=== PATIENT | male | born 1960 | race Caucasian/White ===

== ENCOUNTER 2020-09-17 07:19 | Day surgery (SDC) | payer BC ==
[~2020-09-17] VITALS: Ht 177.8 cm; Wt 82.0 kg
[2020-09-17] MEDS ORDERED: CHLORHEXIDINE 15 ML UDC ONE (08:09)
[2020-09-17 08:24] VITALS: BP 144/85
[2020-09-17] MEDS ORDERED: PLEASE ENTER ALLERGIES MC SCH (08:30)
[2020-09-17] MEDS ORDERED: LACTATED RINGERS 1,000 ML IV SCH (08:30)
[2020-09-17] MEDS ORDERED: CHLORHEXIDINE 15 ML UDC PO ONE (08:30)
[2020-09-17] MEDS ORDERED: ESCI20TA8 PO (08:42)
[2020-09-17] MEDS ORDERED: RIZA10TA20 PO (08:42)
[2020-09-17] MEDS ORDERED: TIMO5DRO37 EACHEYE (08:42)
[2020-09-17] MEDS ORDERED: TRAM50TA2 PO (08:42)
[2020-09-17] MEDS ORDERED: MELO15TA6 PO (08:42)
[2020-09-17] MEDS ORDERED: OMEP-110 PO (08:42)
[2020-09-17] MEDS ORDERED: TAMS-11 PO (08:42)
[2020-09-17] MEDS ORDERED: ZOLP-413 PO (08:42)
[2020-09-17] MEDS ORDERED: TOPI100T8 PO (08:42)
[2020-09-17] MEDS ORDERED: EPINEPHRINE 1 MG/ML, 1ML ONE (09:41)
[2020-09-17] MEDS ORDERED: BUPIVACAINE/PF 0.5% ONE (09:41)
[2020-09-17] MEDS ORDERED: BACITRACIN 50,000 UNIT ONE (09:41)
[2020-09-17] MEDS ORDERED: FENTANYL PF 250 MCG/5ML ONE (09:47)
[2020-09-17] MEDS ORDERED: MIDAZOLAM 1 MG/ML, 2ML ONE (09:47)
[2020-09-17] MEDS ORDERED: CEFAZOLIN 1,000 MG ONE (10:20)
[2020-09-17] MEDS ORDERED: ROCURONIUM 10 MG/ML,10ML ONE (10:20)
[2020-09-17] MEDS ORDERED: ONDANSETRON 2MG/ML, 2ML ONE ×2 (10:20)
[2020-09-17] MEDS ORDERED: SUCCINYLCHOLINE 20 MG/ML, 10ML ONE (10:20)
[2020-09-17] MEDS ORDERED: GLYCOPYRROLATE 0.2MG/1ML, 5ML ONE (10:20)
[2020-09-17] MEDS ORDERED: PROPOFOL 10 MG/ML, 20ML ONE (10:20)
[2020-09-17] MEDS ORDERED: MEPERIDINE/PF 25MG/0.5ML IVPush PRN (11:30)
[2020-09-17] MEDS ORDERED: PROMETHAZINE 25 MG/ML, 1ML IV PRN (11:30)
[2020-09-17] MEDS ORDERED: ALBUTEROL SULFATE 2.5 MG/3 ML NPPB PRN (11:30)
[2020-09-17] MEDS ORDERED: DIAZEPAM 5 MG/ML, 2ML IV PRN ×2 (11:30)
[2020-09-17] MEDS ORDERED: KETOROLAC 30 MG/1 ML IV PRN (11:30)
[2020-09-17] MEDS ORDERED: METOCLOPRAMIDE 5 MG/ML, 2ML IV PRN (11:30)
[2020-09-17] MEDS ORDERED: LABETALOL 5MG/ML, 20ML IV PRN (11:30)
[2020-09-17] MEDS ORDERED: HYDROmorphone 1 MG/ML, 1ML INJ IV PRN (11:30)
[2020-09-17] MEDS ORDERED: ONDANSETRON 2MG/ML, 2ML IVPush PRN (11:30)
[2020-09-17] MEDS ORDERED: hydrALAzine 20 MG/ML, 1ML IV PRN (11:30)
[2020-09-17] MEDS ORDERED: FENTANYL PF 100 MCG/2ML ONE (11:33)
[2020-09-17] MEDS ORDERED: OXYcodone 5 MG/5 ML ORAL.SOL UDC ONE (11:33)
[2020-09-17] MEDS: FENTANYL PF 100 MCG/2ML IV PRN ×3 (11:37→11:53)
[2020-09-17] MEDS: OXYcodone 5 MG/5 ML ORAL.SOL UDC PO PRN ×2 (11:54→14:03)
[2020-09-17] MEDS ORDERED: HYDROmorphone 1 MG/ML, 1ML INJ ONE (12:14)
== END 2020-09-17 14:45 | disposition home or self-care (01) ==
LOC: OUT 07:19
PROVIDERS: ATTEND Neurological Surgery
DX: M48.02 Spinal stenosis, cervical region (principal); M54.12 Radiculopathy, cervical region; M25.78 Osteophyte, vertebrae; F41.9 Anxiety disorder, unspecified; G43.909 Migraine, unspecified, not intractable, without status migrainosus; Z79.899 Other long term (current) drug therapy; Z82.49 Family history of ischemic heart disease and other diseases of the circulatory system; Z81.8 Family history of other mental and behavioral disorders; Z82.61 Family history of arthritis; Z80.9 Family history of malignant neoplasm, unspecified
CPT/HCPCS: 20930; 22551; 22845; 22853; 72040; 95938; 95941; C1713; C1762; C1889; J0171; J0330; J0690; J1170; J2250; J2405; J2704; J3010; J7120